=== PATIENT | female | born 1935 | race Caucasian/White ===

== ENCOUNTER 2023-03-05 19:16 | Inpatient (IN) | payer MEDICARE, BC ==
[2023-03-05 20:28] LABS: #Eosinphils 0.2 thou/uL (0.0-0.7); #Monocytes 0.5 thou/uL (0.11-0.59); #Neutrophils 5.8 thou/uL (1.40-6.50); %Basophils 0.4 % (0.0-1.0); %Eosinophils 2.1 % (0.0-10.0); %Lymphocytes 14.3 % (21.0-51.0); %Monocytes 6.2 % (0.0-10.0); %Neutrophils 76.3 % (42.0-75.0); Hemoglobin 12.1 g/dL (12.0-16.0); Mean Corpuscular HGB CONC 33.4 g/dL (32.0-36.0); Mean Corpuscular Hemoglobin 32.3 pg (27.0-31.0); Mean Corpuscular Volume 96.5 fl (78.0-98.0); Mean Platelet Volume 9.7 fL (7.4-10.4); Platelet Count 213 10x3/uL (130-400); RBC Distribution Width 13.9 % (11.5-14.5); Red Blood Cell (RBC) Count 3.75 mill/uL (4.20-5.40); White Blood Cell (WBC) Count 7.6 10x3/uL (4.8-10.8)
[2023-03-05] MEDS ORDERED: Boostrix 0.5 ML (Tdap) VIAL (>/=7 yrs of age) ONE (20:31)
[2023-03-05] MEDS ORDERED: Ondansetron PF 4 MG/2 ML Vial ONE (20:31)
[2023-03-05] MEDS ORDERED: CEFAZOLIN 2 GM VIAL ONE (20:31)
[2023-03-05] MEDS ORDERED: Morphine 4 MG/ML VIAL ONE (20:31)
[2023-03-05 20:51] LABS: ALT (SGPT) 14 U/L (8-55); AST (SGOT) 22 U/L (5-34); Alkaline Phosphatase 78 U/L (40-110); Anion Gap 17 mmol/L (10-20); BUN (Urea Nitrogen) 22 mg/dL (9.8-20.1); Bilirubin, Total 0.6 mg/dL (0.2-1.2); Calc. Creatinine Clearance 0 mL/min (70-130); Calcium 9.5 mg/dL (7.8-10.44); Carbon Dioxide 20 mmol/L (23-31); Chloride 104 mmol/L (98-107); Estimated GFR 55; Globulin 2.2 g/dL (2.4-3.5); Glucose 106 mg/dL (83-110); Protein, Total 6.2 g/dL (5.8-8.1); Sodium 137 mmol/L (136-145)
[2023-03-05] MEDS ORDERED: Ipratropium/Albuterol 3 ML NEB NEB PRN (21:45)
[2023-03-05] MEDS ORDERED: hydrALAZINE 20 MG/ML VIAL SLOW IVP PRN (21:45)
[2023-03-05] MEDS ORDERED: Ondansetron PF 4 MG/2 ML Vial IVP PRN (21:45)
[2023-03-05] MEDS ORDERED: Sodium Chloride 0.9% 1,000 ML IV SCH (21:45)
[2023-03-05 23:18] VITALS: BMI 42.0
[2023-03-05] MEDS: Cyclobenzaprine 10 MG TAB PO PRN (23:44)
[2023-03-05] MEDS: Acetaminophen 325 MG TAB PO SCH (23:44)
[2023-03-06] MEDS: Morphine 2 MG/ML VIAL SLOW IVP PRN ×3 (01:53→08:15)
[2023-03-06] MEDS: Acetaminophen 325 MG TAB PO SCH ×4 (05:42→23:07)
[2023-03-06 06:12] LABS: #Eosinphils 0.1 thou/uL (0.0-0.7); #Monocytes 0.4 thou/uL (0.11-0.59); #Neutrophils 3.8 thou/uL (1.40-6.50); %Basophils 0.6 % (0.0-1.0); %Eosinophils 2.6 % (0.0-10.0); %Lymphocytes 18.6 % (21.0-51.0); %Monocytes 7.1 % (0.0-10.0); %Neutrophils 70.3 % (42.0-75.0); Mean Corpuscular HGB CONC 32.9 g/dL (32.0-36.0); Mean Corpuscular Hemoglobin 32.9 pg (27.0-31.0); Mean Platelet Volume 10.2 fL (7.4-10.4); Platelet Count 174 10x3/uL (130-400); RBC Distribution Width 14.2 % (11.5-14.5); Red Blood Cell (RBC) Count 3.34 mill/uL (4.20-5.40); White Blood Cell (WBC) Count 5.3 10x3/uL (4.8-10.8)
[2023-03-06 06:32] LABS: INR-International Normal Ratio 1.2; PTT 24.6 sec (22.9-36.1); Prothrombin Time 15.5 sec (12.0-14.7)
[2023-03-06 06:39] LABS: Anion Gap 12 mmol/L (10-20); BUN (Urea Nitrogen) 22 mg/dL (9.8-20.1); Calc. Creatinine Clearance 80 mL/min (70-130); Calcium 8.7 mg/dL (7.8-10.44); Carbon Dioxide 23 mmol/L (23-31); Chloride 107 mmol/L (98-107); Estimated GFR 63; Glucose 98 mg/dL (83-110); Sodium 138 mmol/L (136-145)
[2023-03-06] MEDS ORDERED: CEFAZOLIN 2 GM in Sodium Chloride 0.9% 100 ML IVPB SCH ×3 (07:45→16:00)
[2023-03-06] MEDS ORDERED: ceFAZolin (BATCH) 2 GM/100 ML BAG IVPB SCH (08:00)
[2023-03-06] MEDS: Famotidine/PF 20 mg/2ml Vial SLOW IVP SCH ×2 (08:12→21:06)
[2023-03-06] MEDS: Senokot S 8.6-50 MG TAB PO SCH ×2 (08:13→21:07)
[2023-03-06] MEDS: Polyethylene Glycol 3350 17 GM Packet PO SCH (08:13)
[2023-03-06] MEDS ORDERED: fentaNYL 50 mcg/mL 1 mL Vial ONE (13:17)
[2023-03-06] MEDS ORDERED: Bupivacaine PF 0.5% 30 ML VIAL ONE (13:17)
[2023-03-06] MEDS ORDERED: diphenhydrAMINE 50 MG/ML VIAL ONE (13:25)
[2023-03-06] MEDS ORDERED: Lidocaine 1% PF 5 ML VIAL ONE (13:25)
[2023-03-06] MEDS ORDERED: ePHEDrine Sulfate 50 MG/10 ML VIAL ONE (13:25)
[2023-03-06] MEDS ORDERED: PROPOFOL 200 MG/20 ML VIAL ONE (13:25)
[2023-03-06] MEDS ORDERED: Ondansetron PF 4 MG/2 ML Vial ONE (13:25)
[2023-03-06] MEDS ORDERED: Bacitracin Zinc Ointment 30 gm TUBE ONE (13:26)
[2023-03-06] MEDS ORDERED: fentaNYL PF 100 MCG/2 ML SYRINGE ONE (13:48)
[2023-03-06] MEDS ORDERED: CEFAZOLIN 2 GM VIAL ONE (13:57)
[2023-03-06] MEDS ORDERED: Sodium Chloride 0.9% 100 ML ONE (13:57)
[2023-03-06] MEDS ORDERED: Ondansetron HCl/PF 4 MG/2 ML Vial IVP PRN (15:14)
[2023-03-06] MEDS: Cyclobenzaprine 10 MG TAB PO PRN (21:07)
[2023-03-06] MEDS: CEFAZOLIN 2 GM in Sodium Chloride 0.9% 100 ML IVPB SCH (21:07)
[2023-03-07] MEDS: Morphine 2 MG/ML VIAL SLOW IVP PRN (02:20)
[2023-03-07] MEDS: Acetaminophen 325 MG TAB PO SCH ×4 (05:18→23:16)
[2023-03-07] MEDS: CEFAZOLIN 2 GM in Sodium Chloride 0.9% 100 ML IVPB SCH (05:19)
[2023-03-07] MEDS ORDERED: traMADol HCl 50 MG TAB PO PRN (08:20)
[2023-03-07] MEDS ORDERED: Ibuprofen 200 MG TAB PO PRN (08:21)
[2023-03-07] MEDS: Senokot S 8.6-50 MG TAB PO SCH ×2 (09:07→21:08)
[2023-03-07] MEDS: Polyethylene Glycol 3350 17 GM Packet PO SCH (09:07)
[2023-03-07] MEDS: Famotidine 20 MG TAB PO SCH ×2 (09:07→21:08)
[2023-03-07] MEDS: traMADol HCl 50 MG TAB PO SCH ×3 (11:40→23:16)
[2023-03-07] MEDS ORDERED: CEFAZOLIN 2 GM in Sodium Chloride 0.9% 100 ML IVPB SCH (14:00)
[2023-03-07] MEDS: Cyclobenzaprine 10 MG TAB PO PRN (21:08)
[2023-03-08] MEDS: Acetaminophen 325 MG TAB PO SCH ×3 (05:30→18:08)
[2023-03-08] MEDS: traMADol HCl 50 MG TAB PO SCH ×3 (05:30→18:12)
[2023-03-08] MEDS: Polyethylene Glycol 3350 17 GM Packet PO SCH (09:13)
[2023-03-08] MEDS: Famotidine 20 MG TAB PO SCH ×2 (09:13→21:43)
[2023-03-08] MEDS: Senokot S 8.6-50 MG TAB PO SCH ×2 (09:13→21:43)
[2023-03-09] MEDS: traMADol HCl 50 MG TAB PO SCH ×4 (01:37→17:24)
[2023-03-09] MEDS: Acetaminophen 325 MG TAB PO SCH ×4 (01:37→17:24)
[2023-03-09 06:46] LABS: Hemoglobin 9.3 g/dL (12.0-16.0)
[2023-03-09] MEDS: Senokot S 8.6-50 MG TAB PO SCH ×2 (08:54→20:21)
[2023-03-09] MEDS: Ascorbic Acid 500 mg Chewable Tablet PO SCH ×2 (08:54→20:20)
[2023-03-09] MEDS: Famotidine 20 MG TAB PO SCH ×2 (08:54→20:21)
[2023-03-09] MEDS: Polyethylene Glycol 3350 17 GM Packet PO SCH (08:55)
[2023-03-09] MEDS ORDERED: Ferrous Sulfate 325 MG TAB PO SCH (17:00)
[2023-03-09] MEDS: Ferrous Sulfate 325 MG TAB PO SCH (17:25)
[2023-03-09] MEDS ORDERED: Ascorbic Acid 500 mg Chewable Tablet PO SCH (21:00)
[2023-03-10] MEDS: Acetaminophen 325 MG TAB PO SCH ×3 (00:19→12:28)
[2023-03-10] MEDS: traMADol HCl 50 MG TAB PO SCH ×3 (00:20→12:27)
[2023-03-10] MEDS: Polyethylene Glycol 3350 17 GM Packet PO SCH ×2 (09:07→09:12)
[2023-03-10] MEDS: Ferrous Sulfate 325 MG TAB PO SCH (09:07)
[2023-03-10] MEDS: Ascorbic Acid 500 mg Chewable Tablet PO SCH (09:07)
[2023-03-10 09:08] VITALS: TEMP 97.4
[2023-03-10] MEDS: Senokot S 8.6-50 MG TAB PO SCH (09:08)
[2023-03-10 13:40] VITALS: BP 145/79
== END 2023-03-10 13:55 | DRG 504 ==
LOC: ERS 19:16 → SJJU 21:09
PROVIDERS: ADMIT Specialist; ATTEND Specialist
PROC: 0QSL04Z Reposition Right Tarsal with Internal Fixation Device, Open Approach (ICD-10-PCS; principal; 2023-03-06)
DX: S92.001B Unspecified fracture of right calcaneus, initial encounter for open fracture (principal); D62 Acute posthemorrhagic anemia; I10 Essential (primary) hypertension; G89.29 Other chronic pain; S61.411A Laceration without foreign body of right hand, initial encounter; M54.9 Dorsalgia, unspecified; Z90.49 Acquired absence of other specified parts of digestive tract; Z98.890 Other specified postprocedural states; V49.69XA Unspecified car occupant injured in collision with other motor vehicles in traffic accident, initial encounter
CPT/HCPCS: 28400; 36415; 80048; 80053; 85014; 85018; 85025; 85610; 85730; 86850; 86900; 86901; 90471; 90715; 96365; 96375; J1200; J1650; J2270; J2272; J2405; J2704; J3010; J3490; J7050; S0020; S0028

== ENCOUNTER 2023-04-18 06:19 | Day surgery (SDC) | payer OTHER, MEDICARE, BC ==
[2023-04-17 09:09] VITALS: BMI 41.1
[2023-04-18] MEDS ORDERED: fentaNYL 50 mcg/mL 1 mL Vial ONE ×7 (06:44→11:23)
[2023-04-18] MEDS ORDERED: EPINEPHrine 1 MG/ML AMP ONE (07:01)
[2023-04-18] MEDS ORDERED: CEFAZOLIN 2 GM VIAL ONE (07:21)
[2023-04-18] MEDS ORDERED: Sodium Chloride 0.9% 100 ML ONE (07:21)
[2023-04-18] MEDS ORDERED: Bupivacaine HCl 0.5%/Epinephrine 1:200,000/PF 30 ml Vial ONE (07:40)
[2023-04-18] MEDS ORDERED: Ondansetron PF 4 MG/2 ML Vial ONE (07:56)
[2023-04-18] MEDS ORDERED: Glycopyrrolate 0.2 MG/ML 5 ML SYRINGE ONE (07:56)
[2023-04-18] MEDS ORDERED: PROPOFOL 200 MG/20 ML VIAL ONE (07:56)
[2023-04-18] MEDS ORDERED: Rocuronium Bromide 10 MG/ML (10ML VIAL) ONE (07:56)
[2023-04-18] MEDS ORDERED: NEOSTIGMINE 3 MG/3 ML SYR 3 MG/3 ML SYRINGE ONE (07:56)
[2023-04-18] MEDS ORDERED: Lidocaine 1% PF 5 ML VIAL ONE (07:56)
[2023-04-18] MEDS ORDERED: Dexamethasone 20 MG/5 ML VIAL ONE (07:56)
[2023-04-18] MEDS ORDERED: PHENYLEPHRINE-NS 100 MCG/ML 10 ML SYRINGE ONE (07:56)
== END 2023-04-18 13:45 | disposition home or self-care (01) ==
LOC: SDC 06:19
PROVIDERS: ATTEND Orthopaedic Surgery
PROC: 0QSL04Z Reposition Right Tarsal with Internal Fixation Device, Open Approach (ICD-10-PCS; principal; 2023-04-18)
DX: S92.001A Unspecified fracture of right calcaneus, initial encounter for closed fracture (principal); V89.2XXA Person injured in unspecified motor-vehicle accident, traffic, initial encounter; Z87.891 Personal history of nicotine dependence
CPT/HCPCS: 28415; 73650; 93005; C1713 ×2; J3010; 93010; J0171; J1100; J2405; J2704; J3490